=== PATIENT | female | born 1955 | race African-American/Black ===

== ENCOUNTER 2016-12-30 09:20 | Outpatient (CLI) | payer MEDICAID | END 2016-12-30 11:23 | LOC: D.MAMMO 09:20 | DX: Z12.31 Encounter for screening mammogram for malignant neoplasm of breast (principal) ==

== ENCOUNTER → 2018-01-20 14:41 | Outpatient (CLI) | payer MEDICAID | END | disposition home or self-care (01) | LOC: D.MRI 14:41 | DX: M54.5 Low back pain (principal) ==

== ENCOUNTER → 2018-12-22 15:23 | Outpatient (CLI) | payer MEDICAID ==
[~2018-12-22 15:23] MED LIST: ALEVE220 MG PO; PREMARIN0.625 MG PO
[2019-02-15 07:41] VITALS: BMI 20.8
== END | disposition home or self-care (01) ==
LOC: D.CT 15:23
PROVIDERS: ATTEND Family Medicine
DX: R10.9 Unspecified abdominal pain (principal)

== ENCOUNTER → 2019-01-19 18:13 | Outpatient (CLI) | payer MEDICAID | END | disposition home or self-care (01) | LOC: D.LABREF 18:13 | PROVIDERS: ATTEND Urology | DX: R31.9 Hematuria, unspecified (principal) ==

== ENCOUNTER 2019-02-15 06:02 | Day surgery (SDC) | payer MEDICAID ==
[~2019-02-15] VITALS: Ht 165.1 cm; Wt 56.7 kg
[~2019-02-15 06:02] MED LIST changes: -ALEVE220 MG PO
[2019-02-15 06:18] LABS: HEMATOCRIT 37.4 % (36.0-48.0); HEMOGLOBIN 12.1 g/dL (12-16); MCH 23.3 pg (26.0-34.0); MCHC 32.4 g/dL (31.0-37.0); MCV 72.1 fL (80.0-100.0); MEAN PLATELET VOLUME 9.8 fL (7.4-10.4); RBC 5.19 10x6/uL (4.00-5.40); RDW 14.6 % (11.5-14.5); WBC 5.9 10x3/uL (4.8-10.8)
[2019-02-15 07:41] VITALS: BP 118/68; Ht 165.1 cm; Wt 56.7 kg
[2019-02-15] MEDS ORDERED: ALEVE220 MG PO (07:53)
--- NOTE | 2019-02-15 11:55 | OP ---
PATIENT NAME: SÁNCHEZ ZUNIGA MEDICAL RECORD: [id number] :57 LOCATION:D.OPS ADMISSION DATE: SURGEON: VICTOR MANUEL OROZCO MD DATE OF OPERATION: 02/15/2019 SURGEON: Victor Manuel Orozco MD ANESTHESIA: TIVA by Hanna Gudino CRNA. DIAGNOSES: Microscopic hematuria, interstitial cystitis. PROCEDURES: Cystoscopy, hydrodistention of the bladder, and intravesical Rimso instillation. FINDINGS: Single ureteral orifices bilaterally with no bladder tumors. Diffusely inflamed bladder with glomerulations. BLOOD LOSS: None. CLINICAL HISTORY: This is a 64-year-old female, who was initially referred for microscopic hematuria. Urinalysis and urine cytology was normal. She had a CT scan of the abdomen and pelvis on 12/22/2018, which showed normal kidneys. There was descending and sigmoid colon diverticulosis, previous cholecystectomy and a previous hysterectomy. She has issues with UTI symptoms including suprapubic tenderness, pain in the vaginal area, and urinary urgency. She is a former smoker. SHE IS ALLERGIC TO CEFDINIR. We gave her Levaquin IV events traffic controller to the OR today. DESCRIPTION OF PROCEDURE: The patient was given IV sedation. She was then placed into the lithotomy position and prepped and draped. A 17-Persian cystoscope with 30-degree lens was used for visualization. Findings are as outlined above. The bladder was distended with 500 mL normal saline for 2 minutes. At that point, we saw diffuse bladder inflammation. The bladder was then emptied fully through the cystoscope sheath and the scope was removed. We then inserted a 16-Persian red rubber catheter. Through the red rubber catheter, we instilled 50 mL of intravesical Rimso solution. The catheter was removed, leaving the solution in the bladder. She will hold the solution in the bladder for 15 minutes and then void it out. I will see her in followup in 2 weeks' time. TRANSINT:[id number] Voice Confirmation ID: [id number] DOCUMENT ID: [id number] VICTOR MANUEL OROZCO MD at 1155 CC: [id number] DICTATION DATE: 02/15/19 1110 PHARMACY INFORMATICS MANAGER: 02/15/19 1140 [facility] [address] [place] [address]
--- NOTE | 2019-02-15 11:58 | NUR ---
PATIENT EATING FL DIET. DENIES NEEDS. NO C/O VOICED. ENCOURAGED TO TURN BACK AND FORTH TO MOVE RIMSO AROUND.
--- NOTE | 2019-02-15 12:10 | NUR ---
AMBULATED TO BATHROOM AND VOIDED WITHOUT DIFFICULTY.
--- NOTE | 2019-02-15 12:20 | NUR ---
IV DC'D WITH CATHETER INTACT. WRITTEN AND VERBAL DC INST. GIVEN TO PATIENT. VERBALIZED UNDERSTANDING.
--- NOTE | 2019-02-15 13:05 | NUR ---
1250- DISCHARGED HOME WITH DC PAPERWORK IN HAND. DENIES QUESTIONS OR CONCERNS. ESCORTED OUT VIA W/C BY STAFF WITH DAUGHTER DRIVING HOME.
== END 2019-02-15 12:50 | disposition home or self-care (01) ==
LOC: D.OPS 06:02 → D.PAN 08:20 → D.OPS 08:20 → D.PAN 08:30 → D.OPS 08:30 → D.PAN 10:50 → D.OPS 10:50
PROVIDERS: Anesthesiology; ATTEND Urology
DX: N30.11 Interstitial cystitis (chronic) with hematuria (principal); Z01.812 Encounter for preprocedural laboratory examination

== ENCOUNTER 2020-10-28 11:45 | Outpatient (CLI) | payer BC ==
[2019-02-15 07:41] VITALS: BMI 20.8
[~2020-10-28 11:45] MED LIST changes: +ALEVE220 MG PO
== END 2020-10-28 12:45 | disposition home or self-care (01) ==
LOC: D.MAMMO 11:45
PROVIDERS: ATTEND Family Medicine
DX: Z12.31 Encounter for screening mammogram for malignant neoplasm of breast (principal)